=== PATIENT | female | born 1945 | race Caucasian/White ===

== ENCOUNTER 2021-08-08 00:15 | Inpatient (IN) | payer MEDICARE ==
[2021-08-08] MEDS ORDERED: Ondansetron ODT 4 MG TAB SL PRN (03:15)
[2021-08-08] MEDS ORDERED: Ondansetron PF 4 MG/2 ML Vial IVP PRN ×2 (03:15→03:19)
[2021-08-08] MEDS ORDERED: Dextrose 5 %-0.45 % NaCl 1,000 ML IV SCH (03:15)
[2021-08-08] MEDS ORDERED: Acetaminophen 325 MG TAB PO PRN ×2 (03:15→03:19)
[2021-08-08 04:41] LABS: #Basophils 0.1 thou/uL (0.0-0.2); #Eosinphils 0.1 thou/uL (0.0-0.7); #Lymphocytes 3.4 thou/uL (1.20-3.40); #Monocytes 1.2 thou/uL (0.11-0.59); #Neutrophils 4.3 thou/uL (1.40-6.50); %Basophils 0.6 % (0.0-1.0); %Eosinophils 1.6 % (0.0-10.0); %Lymphocytes 36.9 % (21.0-51.0); %Monocytes 13.5 % (0.0-10.0); %Neutrophils 47.4 % (42.0-75.0); Hemoglobin 11.5 g/dL (12.0-16.0); Mean Corpuscular HGB CONC 31.1 g/dL (32.0-36.0); Mean Corpuscular Hemoglobin 26.9 pg (27.0-31.0); Mean Corpuscular Volume 86.6 fL (78.0-98.0); Mean Platelet Volume 8.8 fL (7.4-10.4); Platelet Count 253 thou/uL (130-400); RBC Distribution Width 14.1 % (11.5-14.5); Red Blood Cell (RBC) Count 4.29 mill/uL (4.20-5.40); White Blood Cell (WBC) Count 9.1 thou/uL (4.8-10.8)
[2021-08-08 05:00] LABS: Anion Gap 17 mmol/L (10-20); BUN (Urea Nitrogen) 11 mg/dL (9.8-20.1); Calc. Creatinine Clearance 83 mL/min (70-130); Calcium 9.4 mg/dL (7.8-10.44); Carbon Dioxide 24 mmol/L (23-31); Chloride 106 mmol/L (98-107); Glucose 96 mg/dL (83-110); Magnesium 1.5 mg/dL (1.6-2.6); Potassium 3.1 mmol/L (3.5-5.1); Sodium 144 mmol/L (136-145)
[2021-08-08 05:05] LABS: Troponin I 0.031 ng/mL (< 0.028)
[2021-08-08] MEDS ORDERED: Magnesium Sulfate 2 GM in Sodium Chloride 0.9% 100 ML IVPB SCH (07:15)
[2021-08-08] MEDS ORDERED: Electrolyte Replacement Protocol 1 EACH FS SCH (07:45)
[2021-08-08] MEDS ORDERED: Potassium Chloride 20 MEQ TAB PO SCH (08:00)
[2021-08-08] MEDS ORDERED: Magnesium 2 GM/50 ML 2 GM in Premix Bag 1 BAG IVPB SCH (08:00)
[2021-08-08] MEDS ORDERED: Non-Formulary Item 1 EACH (Multivitamin With Minerals [Multiple Vitamin] 1 TABLET Tablet) PO SCH (09:00)
[2021-08-08] MEDS ORDERED: Aspirin 325 MG TAB PO SCH (09:00)
[2021-08-08] MEDS ORDERED: Enoxaparin Sodium 30 MG/0.3 ML SYRINGE SC SCH (09:00)
[2021-08-08] MEDS: cefTRIAXone\\ROCEPHIN 1 GM in Sodium Chloride 0.9% 100 ML IVPB SCH (09:20)
[2021-08-08] MEDS: Aspirin 81 mg Enteric Coated Tablet PO SCH (09:20)
[2021-08-08] MEDS: Ezetimibe 10 MG TAB PO SCH (09:21)
[2021-08-08] MEDS: Prasugrel 10 MG TAB PO SCH (09:21)
[2021-08-08] MEDS: Multivitamin W/ Minerals 1 TAB PO SCH (09:21)
[2021-08-08] MEDS: busPIRone HCl 10 MG TAB PO SCH ×2 (09:21→21:10)
[2021-08-08] MEDS: Propranolol 40 MG TAB PO SCH ×2 (09:21→21:10)
[2021-08-08] MEDS: Lisinopril 10 MG TAB PO SCH (09:21)
[2021-08-08] MEDS: hydrALAZINE 20 MG/ML VIAL SLOW IVP PRN (15:03)
[2021-08-08 22:51] LABS: SARS-CoV-2 PCR by NAA Not Detected (NotDetected)
[2021-08-09 05:26] LABS: Anion Gap 13 mmol/L (10-20); BUN (Urea Nitrogen) 9 mg/dL (9.8-20.1); Calc. Creatinine Clearance 83 mL/min (70-130); Calcium 9.3 mg/dL (7.8-10.44); Carbon Dioxide 25 mmol/L (23-31); Chloride 106 mmol/L (98-107); Glucose 108 mg/dL (83-110); Magnesium 1.8 mg/dL (1.6-2.6); Potassium 3.2 mmol/L (3.5-5.1); Sodium 141 mmol/L (136-145)
[2021-08-09 05:28] LABS: Eosinophils 1 % (0-10); Hemoglobin 10.8 g/dL (12.0-16.0); Hypochromia SLIGHT = 6-15 cells (100X) (0-5/hpf); Lymphocytes 26 % (21-51); MDiff Complete? YES; Mean Corpuscular HGB CONC 32.1 g/dL (32.0-36.0); Mean Corpuscular Hemoglobin 27.2 pg (27.0-31.0); Mean Corpuscular Volume 84.7 fL (78.0-98.0); Mean Platelet Volume 8.9 fL (7.4-10.4); Monocytes 10 % (0-10); Neutrophil 60 % (42-75); Platelet Count 277 thou/uL (130-400); Platelet Morphology Comment Appears Adequate; RBC Distribution Width 13.9 % (11.5-14.5); Reactive Lymphocytes 3 % (0-10); Red Blood Cell (RBC) Count 3.98 mill/uL (4.20-5.40); White Blood Cell (WBC) Count 9.4 thou/uL (4.8-10.8)
[2021-08-09] MEDS ORDERED: Potassium Chloride 20 MEQ TAB PO SCH (07:00)
[2021-08-09] MEDS ORDERED: Magnesium 2 GM/50 ML 2 GM in Premix Bag 1 BAG IVPB SCH (07:00)
[2021-08-09] MEDS: Prasugrel 10 MG TAB PO SCH (08:59)
[2021-08-09] MEDS: busPIRone HCl 10 MG TAB PO SCH ×2 (08:59→21:19)
[2021-08-09] MEDS: Ezetimibe 10 MG TAB PO SCH (08:59)
[2021-08-09] MEDS: Multivitamin W/ Minerals 1 TAB PO SCH (08:59)
[2021-08-09] MEDS: Aspirin 81 mg Enteric Coated Tablet PO SCH (08:59)
[2021-08-09] MEDS: cefTRIAXone\\ROCEPHIN 1 GM in Sodium Chloride 0.9% 100 ML IVPB SCH (09:00)
[2021-08-09] MEDS: Enoxaparin Sodium 40 MG/0.4 ML SYRINGE SC SCH (09:00)
[2021-08-09] MEDS: Lisinopril 10 MG TAB PO SCH (09:01)
[2021-08-09] MEDS: Propranolol 40 MG TAB PO SCH ×2 (09:02→21:19)
[2021-08-09 14:30] LABS: Troponin I 0.016 ng/mL (< 0.028)
[2021-08-09] MEDS ORDERED: Albuterol Sulfate 2.5 mg/3 ml Neb NEB PRN (21:27)
[2021-08-10] MEDS: hydrALAZINE 20 MG/ML VIAL SLOW IVP PRN (05:41)
[2021-08-10] MEDS ORDERED: Potassium Chloride 20 MEQ TAB PO SCH (08:00)
[2021-08-10] MEDS: Enoxaparin Sodium 40 MG/0.4 ML SYRINGE SC SCH (08:25)
[2021-08-10] MEDS: cefTRIAXone\\ROCEPHIN 1 GM in Sodium Chloride 0.9% 100 ML IVPB SCH (08:25)
[2021-08-10] MEDS: Aspirin 81 mg Enteric Coated Tablet PO SCH (08:26)
[2021-08-10] MEDS: Multivitamin W/ Minerals 1 TAB PO SCH (08:26)
[2021-08-10] MEDS: Propranolol 40 MG TAB PO SCH (08:26)
[2021-08-10] MEDS: busPIRone HCl 10 MG TAB PO SCH ×2 (08:26→21:00)
[2021-08-10] MEDS: Lisinopril 10 MG TAB PO SCH (08:26)
[2021-08-10] MEDS: Ezetimibe 10 MG TAB PO SCH (08:26)
[2021-08-10] MEDS: Prasugrel 10 MG TAB PO SCH (08:26)
[2021-08-10] MEDS ORDERED: Furosemide 40 MG/4 ML VIAL ONE (09:34)
[2021-08-10] MEDS ORDERED: methylPREDNISolone Sod Succ/PF 125 MG/2 ML VIAL ONE (09:46)
[2021-08-10 10:04] LABS: #Basophils 0.1 thou/uL (0.0-0.2); #Eosinphils 0.2 thou/uL (0.0-0.7); #Lymphocytes 3.7 thou/uL (1.20-3.40); #Monocytes 1.8 thou/uL (0.11-0.59); #Neutrophils 9.6 thou/uL (1.40-6.50); %Basophils 0.8 % (0.0-1.0); %Eosinophils 1.3 % (0.0-10.0); %Lymphocytes 23.8 % (21.0-51.0); %Neutrophils 62.3 % (42.0-75.0); Hemoglobin 12.1 g/dL (12.0-16.0); Mean Corpuscular HGB CONC 30.9 g/dL (32.0-36.0); Mean Corpuscular Volume 84.2 fL (78.0-98.0); Mean Platelet Volume 9.3 fL (7.4-10.4); Platelet Count 331 thou/uL (130-400); Red Blood Cell (RBC) Count 4.66 mill/uL (4.20-5.40); White Blood Cell (WBC) Count 15.4 thou/uL (4.8-10.8)
[2021-08-10 10:27] LABS: ALT (SGPT) 19 U/L (8-55); AST (SGOT) 25 U/L (5-34); Albumin 3.7 g/dL (3.4-4.8); Alkaline Phosphatase 58 U/L (40-110); Anion Gap 18 mmol/L (10-20); BUN (Urea Nitrogen) 7 mg/dL (9.8-20.1); Bilirubin, Total 0.5 mg/dL (0.2-1.2); Calc. Creatinine Clearance 84 mL/min (70-130); Calcium 9.2 mg/dL (7.8-10.44); Carbon Dioxide 22 mmol/L (23-31); Chloride 102 mmol/L (98-107); Globulin 3.2 g/dL (2.4-3.5); Glucose 125 mg/dL (83-110); Magnesium 1.7 mg/dL (1.6-2.6); Potassium 3.7 mmol/L (3.5-5.1); Protein, Total 6.9 g/dL (5.8-8.1); Sodium 138 mmol/L (136-145)
[2021-08-10 10:32] LABS: Troponin I 0.024 ng/mL (< 0.028)
[2021-08-10] MEDS ORDERED: Magnesium 2 GM/50 ML 2 GM in Premix Bag 1 BAG IVPB SCH (13:15)
[2021-08-10] MEDS: methylPREDNISolone Sod Succ 40 MG VIAL IVP SCH ×3 (14:10→23:19)
[2021-08-10] MEDS: Pantoprazole 40 MG VIAL IVP SCH (14:10)
[2021-08-10] MEDS: Azithromycin 500 MG in Sodium Chloride 0.9% 250 ML 250 ML IVPB SCH (14:12)
[2021-08-10] MEDS: Furosemide 20 MG/2 ML VIAL SLOW IVP SCH (14:14)
[2021-08-10 14:47] LABS: #Lymphocytes 1.3 thou/uL (1.20-3.40); #Monocytes 0.1 thou/uL (0.11-0.59); #Neutrophils 7.5 thou/uL (1.40-6.50); %Basophils 0.1 % (0.0-1.0); %Eosinophils 0.1 % (0.0-10.0); %Lymphocytes 14.5 % (21.0-51.0); %Monocytes 1.1 % (0.0-10.0); %Neutrophils 84.1 % (42.0-75.0); Hemoglobin 12.3 g/dL (12.0-16.0); Mean Corpuscular HGB CONC 30.7 g/dL (32.0-36.0); Mean Corpuscular Hemoglobin 25.6 pg (27.0-31.0); Mean Corpuscular Volume 83.2 fL (78.0-98.0); Mean Platelet Volume 8.9 fL (7.4-10.4); Platelet Count 308 thou/uL (130-400); RBC Distribution Width 14.1 % (11.5-14.5); White Blood Cell (WBC) Count 8.9 thou/uL (4.8-10.8)
[2021-08-10 15:10] LABS: Anion Gap 19 mmol/L (10-20); BUN (Urea Nitrogen) 8 mg/dL (9.8-20.1); Calc. Creatinine Clearance 82 mL/min (70-130); Calcium 9.7 mg/dL (7.8-10.44); Carbon Dioxide 23 mmol/L (23-31); Chloride 101 mmol/L (98-107); Glucose 130 mg/dL (83-110); Magnesium 2.4 mg/dL (1.6-2.6); Potassium 3.9 mmol/L (3.5-5.1); Sodium 139 mmol/L (136-145)
[2021-08-10] MEDS: Potassium Bicarbonate/Cit Ac 20 MEQ TAB PO SCH (18:05)
[2021-08-11 04:05] LABS: #Lymphocytes 1.3 thou/uL (1.20-3.40); #Monocytes 0.2 thou/uL (0.11-0.59); #Neutrophils 4.6 thou/uL (1.40-6.50); %Basophils 0.5 % (0.0-1.0); %Lymphocytes 21.6 % (21.0-51.0); %Monocytes 3.1 % (0.0-10.0); %Neutrophils 74.8 % (42.0-75.0); Hemoglobin 11.6 g/dL (12.0-16.0); Mean Corpuscular HGB CONC 30.5 g/dL (32.0-36.0); Mean Corpuscular Hemoglobin 25.3 pg (27.0-31.0); Mean Corpuscular Volume 82.9 fL (78.0-98.0); Mean Platelet Volume 9.5 fL (7.4-10.4); Platelet Count 320 thou/uL (130-400); RBC Distribution Width 14.2 % (11.5-14.5); Red Blood Cell (RBC) Count 4.59 mill/uL (4.20-5.40); White Blood Cell (WBC) Count 6.2 thou/uL (4.8-10.8)
[2021-08-11 04:22] LABS: Anion Gap 17 mmol/L (10-20); BUN (Urea Nitrogen) 17 mg/dL (9.8-20.1); Calc. Creatinine Clearance 61 mL/min (70-130); Calcium 9.5 mg/dL (7.8-10.44); Carbon Dioxide 27 mmol/L (23-31); Chloride 100 mmol/L (98-107); Glucose 172 mg/dL (83-110); Potassium 4.1 mmol/L (3.5-5.1); Sodium 140 mmol/L (136-145)
[2021-08-11] MEDS: Furosemide 20 MG/2 ML VIAL SLOW IVP SCH ×2 (05:28→15:33)
[2021-08-11] MEDS: methylPREDNISolone Sod Succ 40 MG VIAL IVP SCH ×4 (05:28→23:35)
[2021-08-11] MEDS: Multivitamin W/ Minerals 1 TAB PO SCH (08:39)
[2021-08-11] MEDS: Lisinopril 10 MG TAB PO SCH (08:39)
[2021-08-11] MEDS: Enoxaparin Sodium 40 MG/0.4 ML SYRINGE SC SCH (08:39)
[2021-08-11] MEDS: Aspirin 81 mg Enteric Coated Tablet PO SCH (08:39)
[2021-08-11] MEDS: Potassium Bicarbonate/Cit Ac 20 MEQ TAB PO SCH ×2 (08:39→17:32)
[2021-08-11] MEDS: Prasugrel 10 MG TAB PO SCH (08:39)
[2021-08-11] MEDS: Ezetimibe 10 MG TAB PO SCH (08:39)
[2021-08-11] MEDS: busPIRone HCl 10 MG TAB PO SCH ×2 (08:39→20:08)
[2021-08-11] MEDS: Pantoprazole 40 MG VIAL IVP SCH (08:40)
[2021-08-11] MEDS: cefTRIAXone\\ROCEPHIN 1 GM in Sodium Chloride 0.9% 100 ML IVPB SCH (08:47)
[2021-08-11] MEDS ORDERED: FLU VACC QS2021-22(65YR UP)/PF 240 MCG/0.7 ML SYRINGE IM ONE (09:00)
[2021-08-11] MEDS: Azithromycin 500 MG in Sodium Chloride 0.9% 250 ML 250 ML IVPB SCH (11:28)
[2021-08-11] MEDS: hydrALAZINE 20 MG/ML VIAL SLOW IVP PRN (23:34)
[2021-08-12 05:24] LABS: Anion Gap 18 mmol/L (10-20); BUN (Urea Nitrogen) 23 mg/dL (9.8-20.1); Calc. Creatinine Clearance 0 mL/min (70-130); Calcium 9.5 mg/dL (7.8-10.44); Carbon Dioxide 24 mmol/L (23-31); Chloride 100 mmol/L (98-107); Glucose 164 mg/dL (83-110); Sodium 138 mmol/L (136-145)
[2021-08-12] MEDS: methylPREDNISolone Sod Succ 40 MG VIAL IVP SCH ×3 (06:02→16:54)
[2021-08-12] MEDS: Prasugrel 10 MG TAB PO SCH (08:25)
[2021-08-12] MEDS: Aspirin 81 mg Enteric Coated Tablet PO SCH (08:25)
[2021-08-12] MEDS: Enoxaparin Sodium 40 MG/0.4 ML SYRINGE SC SCH (08:25)
[2021-08-12] MEDS: Ezetimibe 10 MG TAB PO SCH (08:25)
[2021-08-12] MEDS: busPIRone HCl 10 MG TAB PO SCH ×2 (08:25→20:06)
[2021-08-12] MEDS: Potassium Bicarbonate/Cit Ac 20 MEQ TAB PO SCH ×2 (08:25→16:54)
[2021-08-12] MEDS: Multivitamin W/ Minerals 1 TAB PO SCH (08:26)
[2021-08-12] MEDS: cefTRIAXone\\ROCEPHIN 1 GM in Sodium Chloride 0.9% 100 ML IVPB SCH (08:26)
[2021-08-12] MEDS: Furosemide 20 MG TAB PO SCH (08:26)
[2021-08-12] MEDS: Lisinopril 10 MG TAB PO SCH ×2 (08:26→20:07)
[2021-08-12] MEDS: Propranolol 40 MG TAB PO SCH ×2 (09:10→20:06)
[2021-08-12] MEDS: Azithromycin 500 MG in Sodium Chloride 0.9% 250 ML 250 ML IVPB SCH (11:20)
[2021-08-12] MEDS ORDERED: Polyethylene Glycol 3350 17 GM Packet PO PRN (15:54)
[2021-08-12] MEDS: hydrALAZINE 20 MG/ML VIAL SLOW IVP PRN (20:05)
[2021-08-12] MEDS: Senokot S 8.6-50 MG TAB PO SCH (20:06)
[2021-08-13] MEDS: methylPREDNISolone Sod Succ 40 MG VIAL IVP SCH ×3 (02:31→11:46)
[2021-08-13] MEDS: hydrALAZINE 20 MG/ML VIAL SLOW IVP PRN (04:22)
[2021-08-13 08:04] LABS: Anion Gap 15 mmol/L (10-20); BUN (Urea Nitrogen) 29 mg/dL (9.8-20.1); Calc. Creatinine Clearance 88 mL/min (70-130); Calcium 9.2 mg/dL (7.8-10.44); Carbon Dioxide 26 mmol/L (23-31); Chloride 101 mmol/L (98-107); Glucose 181 mg/dL (83-110); Potassium 4.2 mmol/L (3.5-5.1); Sodium 138 mmol/L (136-145)
[2021-08-13] MEDS: Senokot S 8.6-50 MG TAB PO SCH ×2 (08:38→21:38)
[2021-08-13] MEDS: Lisinopril 10 MG TAB PO SCH ×2 (08:40→21:38)
[2021-08-13] MEDS: Potassium Bicarbonate/Cit Ac 20 MEQ TAB PO SCH (08:40)
[2021-08-13] MEDS: busPIRone HCl 10 MG TAB PO SCH ×2 (08:40→21:39)
[2021-08-13] MEDS: Enoxaparin Sodium 40 MG/0.4 ML SYRINGE SC SCH (08:41)
[2021-08-13] MEDS: Ezetimibe 10 MG TAB PO SCH (08:41)
[2021-08-13] MEDS: Prasugrel 10 MG TAB PO SCH (08:41)
[2021-08-13] MEDS: Aspirin 81 mg Enteric Coated Tablet PO SCH (08:41)
[2021-08-13] MEDS: Multivitamin W/ Minerals 1 TAB PO SCH (08:41)
[2021-08-13] MEDS: Propranolol 40 MG TAB PO SCH ×2 (08:41→21:38)
[2021-08-13] MEDS: Furosemide 20 MG TAB PO SCH (08:41)
[2021-08-13] MEDS: cefTRIAXone\\ROCEPHIN 1 GM in Sodium Chloride 0.9% 100 ML IVPB SCH (08:41)
[2021-08-13 10:44] LABS: #Lymphocytes 1.4 thou/uL (1.20-3.40); #Monocytes 0.7 thou/uL (0.11-0.59); #Neutrophils 10.2 thou/uL (1.40-6.50); %Basophils 0.4 % (0.0-1.0); %Eosinophils 0.1 % (0.0-10.0); %Lymphocytes 11.4 % (21.0-51.0); %Monocytes 5.5 % (0.0-10.0); %Neutrophils 82.7 % (42.0-75.0); Hemoglobin 11.5 g/dL (12.0-16.0); Hypochromia SLIGHT = 6-15 cells (100X) (0-5/hpf); MDiff Complete? YES; Mean Corpuscular HGB CONC 29.8 g/dL (32.0-36.0); Mean Corpuscular Hemoglobin 25.1 pg (27.0-31.0); Mean Corpuscular Volume 84.4 fL (78.0-98.0); Mean Platelet Volume 9.8 fL (7.4-10.4); Ovalocytes SLIGHT = 2-5 cells (100X) (0-1/hpf); Platelet Count 328 thou/uL (130-400); Platelet Morphology Comment Appears Adequate; RBC Distribution Width 14.5 % (11.5-14.5); Red Blood Cell (RBC) Count 4.56 mill/uL (4.20-5.40); Target Cells SLIGHT = 2-5 cells (100X) (0-1/hpf); Tear Drops SLIGHT = 2-5 cells (100X) (0-1/hpf); White Blood Cell (WBC) Count 12.3 thou/uL (4.8-10.8)
[2021-08-13] MEDS: Azithromycin 500 MG in Sodium Chloride 0.9% 250 ML 250 ML IVPB SCH (11:46)
[2021-08-13] MEDS: predniSONE 20 MG TAB PO SCH (16:50)
[2021-08-14 05:28] LABS: #Lymphocytes 2.3 thou/uL (1.20-3.40); #Monocytes 1.4 thou/uL (0.11-0.59); #Neutrophils 6.8 thou/uL (1.40-6.50); %Basophils 0.3 % (0.0-1.0); %Eosinophils 0.1 % (0.0-10.0); %Lymphocytes 22.1 % (21.0-51.0); %Monocytes 13.3 % (0.0-10.0); %Neutrophils 64.2 % (42.0-75.0); Hemoglobin 10.7 g/dL (12.0-16.0); Mean Corpuscular Hemoglobin 26.4 pg (27.0-31.0); Mean Platelet Volume 9.7 fL (7.4-10.4); Platelet Count 258 thou/uL (130-400); RBC Distribution Width 14.2 % (11.5-14.5); Red Blood Cell (RBC) Count 4.07 mill/uL (4.20-5.40); White Blood Cell (WBC) Count 10.6 thou/uL (4.8-10.8)
[2021-08-14 05:37] LABS: Anion Gap 14 mmol/L (10-20); BUN (Urea Nitrogen) 29 mg/dL (9.8-20.1); Calc. Creatinine Clearance 91 mL/min (70-130); Calcium 8.9 mg/dL (7.8-10.44); Carbon Dioxide 27 mmol/L (23-31); Chloride 102 mmol/L (98-107); Glucose 147 mg/dL (83-110); Potassium 3.8 mmol/L (3.5-5.1); Sodium 139 mmol/L (136-145)
[2021-08-14 10:12] VITALS: BMI 27.2
[2021-08-14] MEDS: Multivitamin W/ Minerals 1 TAB PO SCH (10:50)
[2021-08-14] MEDS: Lisinopril 10 MG TAB PO SCH ×2 (10:50→21:32)
[2021-08-14] MEDS: Prasugrel 10 MG TAB PO SCH (10:51)
[2021-08-14] MEDS: Furosemide 20 MG TAB PO SCH (10:51)
[2021-08-14] MEDS: Senokot S 8.6-50 MG TAB PO SCH ×2 (10:51→21:33)
[2021-08-14] MEDS: Ezetimibe 10 MG TAB PO SCH (10:51)
[2021-08-14] MEDS: predniSONE 20 MG TAB PO SCH ×2 (10:52→17:15)
[2021-08-14] MEDS: Potassium Bicarbonate/Cit Ac 20 MEQ TAB PO SCH (10:52)
[2021-08-14] MEDS: Propranolol 40 MG TAB PO SCH ×2 (10:52→21:32)
[2021-08-14] MEDS: busPIRone HCl 10 MG TAB PO SCH ×2 (10:52→21:32)
[2021-08-14] MEDS: Aspirin 81 mg Enteric Coated Tablet PO SCH (10:52)
[2021-08-14] MEDS: cefTRIAXone\\ROCEPHIN 1 GM in Sodium Chloride 0.9% 100 ML IVPB SCH (10:53)
[2021-08-15] MEDS ORDERED: Lisinopril 20 MG TAB PO SCH (10:00)
[2021-08-15] MEDS ORDERED: Amlodipine 5 MG TAB PO SCH (10:00)
[2021-08-15] MEDS: Senokot S 8.6-50 MG TAB PO SCH ×2 (10:04→21:08)
[2021-08-15] MEDS: Prasugrel 10 MG TAB PO SCH (10:04)
[2021-08-15] MEDS: Propranolol 40 MG TAB PO SCH ×2 (10:04→21:08)
[2021-08-15] MEDS: Aspirin 81 mg Enteric Coated Tablet PO SCH (10:04)
[2021-08-15] MEDS: predniSONE 20 MG TAB PO SCH ×2 (10:04→21:11)
[2021-08-15] MEDS: Potassium Bicarbonate/Cit Ac 20 MEQ TAB PO SCH (10:04)
[2021-08-15] MEDS: busPIRone HCl 10 MG TAB PO SCH ×2 (10:05→21:08)
[2021-08-15] MEDS: Furosemide 20 MG TAB PO SCH (10:05)
[2021-08-15] MEDS: Ezetimibe 10 MG TAB PO SCH (10:05)
[2021-08-15] MEDS: Multivitamin W/ Minerals 1 TAB PO SCH (10:05)
[2021-08-15] MEDS: Lisinopril 10 MG TAB PO SCH (10:06)
[2021-08-15] MEDS: cefTRIAXone\\ROCEPHIN 1 GM in Sodium Chloride 0.9% 100 ML IVPB SCH (13:30)
[2021-08-15 13:46] LABS: SARS-CoV-2 PCR by NAA Not Detected (NotDetected)
[2021-08-15] MEDS: Lisinopril 20 MG TAB PO SCH (21:08)
[2021-08-16] MEDS: hydrALAZINE 20 MG/ML VIAL SLOW IVP PRN ×3 (00:45→12:57)
[2021-08-16] MEDS: predniSONE 20 MG TAB PO SCH (09:46)
[2021-08-16] MEDS: Amlodipine 5 MG TAB PO SCH (09:46)
[2021-08-16] MEDS: Potassium Bicarbonate/Cit Ac 20 MEQ TAB PO SCH (09:46)
[2021-08-16] MEDS: Aspirin 81 mg Enteric Coated Tablet PO SCH (09:46)
[2021-08-16] MEDS: busPIRone HCl 10 MG TAB PO SCH ×2 (09:46→20:53)
[2021-08-16] MEDS: Ezetimibe 10 MG TAB PO SCH (09:47)
[2021-08-16] MEDS: Furosemide 20 MG TAB PO SCH (09:47)
[2021-08-16] MEDS: Lisinopril 20 MG TAB PO SCH ×2 (09:47→20:53)
[2021-08-16] MEDS: Prasugrel 10 MG TAB PO SCH (09:47)
[2021-08-16] MEDS: cefTRIAXone\\ROCEPHIN 1 GM in Sodium Chloride 0.9% 100 ML IVPB SCH (09:47)
[2021-08-16] MEDS: Multivitamin W/ Minerals 1 TAB PO SCH (09:47)
[2021-08-16] MEDS: Senokot S 8.6-50 MG TAB PO SCH ×2 (09:47→20:53)
[2021-08-16] MEDS: Propranolol 40 MG TAB PO SCH ×2 (09:47→20:53)
[2021-08-16] MEDS: hydrALAZINE 25 MG TAB PO SCH ×2 (15:46→20:54)
[2021-08-16] MEDS ORDERED: hydrALAZINE 20 MG/ML VIAL SLOW IVP PRN (16:12)
[2021-08-17] MEDS ORDERED: predniSONE 20 MG TAB PO SCH (08:00)
[2021-08-17] MEDS: Ezetimibe 10 MG TAB PO SCH (08:30)
[2021-08-17] MEDS: Senokot S 8.6-50 MG TAB PO SCH ×2 (08:30→20:31)
[2021-08-17] MEDS: Lisinopril 20 MG TAB PO SCH ×2 (08:30→20:30)
[2021-08-17] MEDS: Prasugrel 10 MG TAB PO SCH (08:30)
[2021-08-17] MEDS: Propranolol 40 MG TAB PO SCH ×2 (08:30→20:30)
[2021-08-17] MEDS: hydrALAZINE 25 MG TAB PO SCH ×3 (08:30→20:30)
[2021-08-17] MEDS: Multivitamin W/ Minerals 1 TAB PO SCH (08:31)
[2021-08-17] MEDS: Furosemide 20 MG TAB PO SCH (08:31)
[2021-08-17] MEDS: Amlodipine 5 MG TAB PO SCH (08:31)
[2021-08-17] MEDS: Potassium Bicarbonate/Cit Ac 20 MEQ TAB PO SCH (08:31)
[2021-08-17] MEDS: Aspirin 81 mg Enteric Coated Tablet PO SCH (08:31)
[2021-08-17] MEDS: busPIRone HCl 10 MG TAB PO SCH ×2 (08:31→20:30)
[2021-08-17 21:31] VITALS: BP 161/82; TEMP 98.1
== END 2021-08-17 20:49 | DRG 689 ==
LOC: 2NO 00:15 → OBSVTOIN 08-09 19:48 → CCU 08-10 10:15 → 2NO 08-11 09:31
PROVIDERS: ADMIT Internal Medicine; ATTEND Internal Medicine
DX: N30.00 Acute cystitis without hematuria (principal); J96.01 Acute respiratory failure with hypoxia; I50.33 Acute on chronic diastolic (congestive) heart failure; G92.8 Other toxic encephalopathy; R44.0 Auditory hallucinations; I11.0 Hypertensive heart disease with heart failure; Z20.822 Contact with and (suspected) exposure to COVID-19; I25.10 Atherosclerotic heart disease of native coronary artery without angina pectoris; E78.5 Hyperlipidemia, unspecified; G25.0 Essential tremor; F03.90 Unspecified dementia, unspecified severity, without behavioral disturbance, psychotic disturbance, mood disturbance, and anxiety; F41.9 Anxiety disorder, unspecified; F32.A Depression, unspecified; G51.0 Bell's palsy; F17.210 Nicotine dependence, cigarettes, uncomplicated; E87.6 Hypokalemia; E66.9 Obesity, unspecified; I16.0 Hypertensive urgency; I70.8 Atherosclerosis of other arteries; R77.8 Other specified abnormalities of plasma proteins; R44.1 Visual hallucinations; E83.42 Hypomagnesemia; Z86.73 Personal history of transient ischemic attack (TIA), and cerebral infarction without residual deficits; Z95.1 Presence of aortocoronary bypass graft; Z90.49 Acquired absence of other specified parts of digestive tract; Z85.42 Personal history of malignant neoplasm of other parts of uterus; Z68.34 Body mass index [BMI] 34.0-34.9, adult; Z88.5 Allergy status to narcotic agent; Z88.8 Allergy status to other drugs, medicaments and biological substances
CPT/HCPCS: 36415; 36416; 71045; 80048; 82140; 83735; 83880; 84443; 84484; 85025; 93005; 93010; 93306; 93923; 94640; 96372; 96374; 96375; 96376; C9113; G0378; J0360; J0456; J0696; J1650; J1940; J2920; J3475; J3490; J7050; J7512; J7611; J7620; U0003; U0005